=== PATIENT | female | born 1985 | race Caucasian/White ===

== ENCOUNTER → 2017-11-25 | Outpatient (CLI) | payer OTHER | END | disposition home or self-care (01) | LOC: RADPV 09:07 | PROVIDERS: ATTEND Legal Medicine | DX: R07.81 Pleurodynia (principal) | CPT/HCPCS: 71046 ==

== ENCOUNTER → 2018-02-05 | Outpatient (CLI) | payer OTHER ==
[~2018-02-05] MED LIST: IOVERSOL 320 MG/ML 100 ML VIAL ONE; SODIUM CHLORIDE 0.9% 100 ML ONE
[2018-02-05 13:50] LABS: CREATININE 0.66 mg/dL (0.60-1.30); GLOMERULAR FILTR. RATE CALC > 60 mL/min (>60); UREA NITROGEN, BLOOD 11 mg/dL (7-18)
== END | disposition home or self-care (01) ==
LOC: LABPV 13:05
PROVIDERS: ATTEND Legal Medicine
DX: J32.9 Chronic sinusitis, unspecified (principal); Q28.3 Other malformations of cerebral vessels
CPT/HCPCS: 36415; 70460; 70544; 82565; 84520; J7050; Q9967